=== PATIENT | male | born 1940 | race Caucasian/White ===

== ENCOUNTER 2017-07-26 09:18 | Emergency (ER) | payer OTHER ==
[2017-07-26] MEDS ORDERED: ASPIRIN 81 MG CHEW TAB ONE ×2 (09:28→09:29)
[2017-07-26] MEDS ORDERED: ASPIRIN 81 MG CHEW TAB PO ONE (09:29)
[2017-07-26] MEDS: NITROGLYCERIN 0.4 MG TAB.SUBL SL ONE ×2 (09:32→09:48)
[2017-07-26 09:38] LABS: BASOPHILS % 0.6 (0.0-1.5); EOSINOPHILS % 0.5 % (0.0-6.8); MEAN CORPUSCULAR HEMOGLOBIN 29.6 pg (28.0-34.0); MONOCYTES % 5.8 % (0.0-11.0); NEUTROPHILS # 4.8 # k/uL (1.4-7.7)
[2017-07-26] MEDS ORDERED: METOPROLOL TARTRATE 5 MG/5 ML VIAL IVP ONE ×3 (09:41→09:53)
[2017-07-26] MEDS ORDERED: HEPARIN SODIUM 5000 UNIT/1 ML ONE (09:49)
[2017-07-26 09:52] LABS: eGFR (African) > 60; eGFR (Non-African) 57
[2017-07-26] MEDS ORDERED: HEPARIN SODIUM 5000 UNIT/1 ML IVP ONE (09:52)
[2017-07-26] MEDS ORDERED: 0.9 % SODIUM CHLORIDE 1,000 ML IV ONE (09:53)
[2017-07-26 10:06] VITALS: BP 104/68
--- NOTE | 2017-07-26 10:12 | ED Physician Documentation ---
Chest Pain - HISTORIAN Historian: patient - HPI Stated Complaint: chest pain Chief Complaint: Chest Pain Onset: hours Timing: still present Duration: persistent, worse Last known Well Date: 07/25/17 Last Known Well Time: 20:00 Context: rest Severity: moderate Quality: pressure, tightness Chest Pain Radiation: no radiation Chest Pain Signs/Symptoms: denies: nausea, vomiting, diaphoresis, dyspnea, tachypnea, tachycardia Worsened By: nothing Relieved By: nothing Further Comments: yes (76 year old male patient brought in by a friend with complaints of chest pain. Patient reports chest pain started last night, states he had chest pain during the night. 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 PCP is [facility].) - ROS CONST: none MS/LYMPH: none GI/: none EYES/ENT: none SKIN/ENDO: none NEURO/PSYCH: none - PAST HX IA risk factors: no pertinent history (patient denies) Lung disease: COPD Allergies/Adverse Reactions: Allergies Allergy/AdvReac Type Severity Reaction Status Date / Time No Known Allergies Allergy Verified 07/26/17 09:38 Home Medications: Ambulatory Orders Medication Instructions Recorded Albuterol Sulfate [Albuterol 8.5 gm IH QID #1 [id number].aer.[email or web address] 09/29/12 Sulfate Hfa] Albuterol Sulfate [Proair HFA] 1 inh IH 07/26/17 - SOCIAL HX Smoking History: non-smoker - FAMILY HX Family HX: denies: none - VITAL SIGNS Vital Signs: Vital Signs Temp Pulse Resp BP Pulse Ox 116 H 22 104/68 95 07/26/17 10:02 07/26/17 10:02 07/26/17 10:02 07/26/17 10:02 - REVIEWED ASSESSMENTS Nursing Assessment Reviewed: Yes Vitals Reviewed: Yes Progress - Progress Progress: 0921 EKG shows anterior-lateral STEMI, [id number], artifact - patient has difficult time rating CP. At present rates pain 6/10, Asa 81mg x 4 tabs given. SL nitro given. Reviewed EKG results with patient, explained he needed to go to regulatory scientist immediately for cardiac cath. Patient prefers [facility]. Last PO intake - dinner 07/25/[address] Elsa CASTILLO at [facility]; no beds available, permission granted to send patient to another facility. Updated patient, prefer [facility]. No air transport available due to low ceiling- Staff for [facility] checked 0950 Call to [facility] - Patient accepted by Dr Salgado, will go directly to boot and shoe laborer. Orders for Heparin bolus 5000U IV. Will send additional lab as results come. EMS at bedside - Patient has had 2 nitro .4mg tabs SL, 10mg of lopressor IV for HR 105-110, NS infusing, heparin bolus given prior to discharge. VS stable at discharge. Patient requested we call his daughters. 1000 Call to patient's daughters Chantal and Jolly to update on transfer. Spoke with Chantal. 1023 Arrival to boot and shoe laborer - per EMS - EKG/XRAY/CT EKG: rhythm (0921 ST, STEMI- anterior-lateral, rate 129; artifact) XRAY: chest - Additional EKG/XRAY/Consults EKG #2: rhythm (0933 ST, STEMI - anterior-lateral, rate 127; artifact; multiple attempts to decrease artifact) ED Results Lab/Radiology - Lab Results Lab Results: Lab Results 07/26/17 07/26/17 07/26/17 09:30 09:30 09:30 WBC 6.40 K/ul K/ul (4.00-12.00) RBC 5.62 M/ul H M/ul (3.90-5.20) Hgb 16.7 g/dL g/dL (12.0-18.0) Hct 53.4 % H % (37.0-53.0) MCV 95.0 fl fl (80.0-100.0) MCH 29.6 pg pg (28.0-34.0) MCHC 31.2 g/dL g/dL (30.0-36.0) RDW 13.1 % % (11.3-14.3) Plt Count 247 K/mm3 K/mm3 (130-400) Neut % (Auto) 74.9 % % (39.0-79.0) Lymph % (Auto) 15.3 % L % (16.0-50.0) [place] % (Auto) 5.8 % % (0.0-11.0) Eos % (Auto) 0.5 % % (0.0-6.8) Baso % (Auto) 0.6 (0.0-1.5) Neut # (Auto) 4.8 # k/uL # k/uL (1.4-7.7) Lymph # (Auto) 1.0 # k/uL # k/uL (0.6-4.0) [place] # (Auto) 0.4 # k/uL # k/uL (0.0-0.9) Eos # (Auto) 0.0 # k/uL # k/uL (0.0-0.6) Baso # (Auto) 0.0 # k/uL # k/uL (0.0-0.5) Reactive Lymphs % 2.8 % % (0.0-5.0) Reactive Lymphs # 0.2 # k/uL # k/uL (0.0-0.8) D-Dimer Pending Sodium 145 mmol/L mmol/L (136-145) Potassium 4.6 mmol/L mmol/L (3.5-5.1) Chloride 103 mmol/L mmol/L (98-107) Carbon Dioxide 30 mmol/L mmol/L (22-30) BUN 18 mg/dL mg/dL (9-20) Creatinine 1.30 mg/dL H mg/dL (0.66-1.25) Estimated Creat Clear 47 Est GFR ( Amer) > 60 (60 - ) Est GFR (Non-Af Amer) 57 L (60 - ) Glucose 150 mg/dL H mg/dL (74-106) Calcium 9.8 mg/dL mg/dL (8.4-10.2) Total Bilirubin 1.1 mg/dL mg/dL (0.2-1.3) AST 55 U/L H U/L (15-46) ALT 37 U/L U/L (13-69) Alkaline Phosphatase 83 U/L U/L (38-126) CK-MB (CK-2) Pending Troponin I 2.23 ng/mL H ng/mL (0.03-0.06) NT-Pro-B Natriuret Pep Pending Total Protein 8.2 g/dL g/dL (6.3-8.2) Albumin 4.3 g/dL g/dL (3.5-5.0) - Radiology Radiology Impressions: Examination: Portable chest History: PCXR, CHEST PAIN, COUGH, HYPOXIA SINCE YESTERDAY (Hx) Comparison exam: None available. Findings: Single view of the chest demonstrates a normal cardiac and mediastinal silhouette. Few vascular calcifications involving the aortic arch. Chronic appearing interstitial changes. Focal area parenchymal fullness involving the right upper lung and left mid lung. Remaining lung lobato without focal infiltrate. No blunting of the costophrenic margins. Scarring at the left costophrenic margin. Osseous structures are appropriate for age. Impression: Right upper and left midlung field densities - while these could represent focal infectious/inflammatory processes, an underlying parenchymal density/lesion cannot be excluded. If these densities persist on subsequent follow up x-ray after appropriate interval therapy, CT chest would be warranted to further evaluate. Electronically signed on Jul 26, 2017 9:50:13 AM AUDIO VISUAL COLLECTIONS COORDINATOR by: Evangelista Licona - Orders Orders: ED Orders Category Date Time Status CHEST 1VIEW [RAD] Stat Exams 07/26/17 09:36 Ordered CBC/PLATELET/DIFF Stat Lab 07/26/17 09:30 Completed CKMB Stat Lab 07/26/17 09:30 Results CMP Stat Lab 07/26/17 09:30 Completed TROPONIN I (cTnI) Stat Lab 07/26/17 09:30 Results 0.9 % Sodium Chloride [Normal Saline] 1,000 ml Med 07/26/17 09:53 Active IV Q1H Aspirin Med 07/26/17 09:29 Discontinued 162 mg .ROUTE .STK-MED ONE Aspirin Med 07/26/17 09:28 Discontinued 324 mg .ROUTE .STK-MED ONE Aspirin Med 07/26/17 09:29 Discontinued 324 mg PO NOW ONE Heparin Sodium [Heparin] Med 07/26/17 09:49 Discontinued 5,000 unit .ROUTE .STK-MED ONE Heparin Sodium [Heparin] Med 07/26/17 09:52 Discontinued 5,000 unit IVP NOW ONE Metoprolol Tartrate [Toprol] Med 07/26/17 09:41 Discontinued 5 mg IVP .STK-MED ONE Metoprolol Tartrate [Toprol] Med 07/26/17 09:43 Discontinued 5 mg IVP NOW ONE Metoprolol Tartrate [Toprol] Med 07/26/17 09:53 Discontinued 5 mg IVP NOW ONE Nitroglycerin [Nitroquick] Med 07/26/17 09:31 Discontinued 0.4 mg SL NOW ONE Oxygen NOW Oxygen 07/26/17 09:20 Ordered Chest Pain Physical Exam - EXAM General Appearance: mild distress EENT: eye inspection normal, AK[place] Respiratory: no resp. distress, chest non-tender, nml breath sounds CVS: no murmur, no gallop, no friction rub, pulses full, pulses equal, tachycardia Abdomen: soft, no organomegaly, normal bowel sounds, no abdominal bruit, no distension Skin: normal color, warm/dry, NR, INT, DR Extremities: non-tender, normal range of motion, no evidence of injury, no edema , J, SPECIAL EDUCATION COORDINATOR Neuro: oriented X3, CN's nml as tested, motor nml, sensation nml, mood/affect nml Discharge Clincal Impression: STEMI (ST elevation myocardial infarction) Qualifiers: Involved coronary artery: other anterior wall coronary artery Qualified Code(s) : I21.09 - ST elevation (STEMI) myocardial infarction involving other coronary artery of anterior wall Referrals: Primary Doctor,No [Primary Care Provider] - 2 Days Condition: Critical Disposition: 02 XFER SHT-TRM HOSP Decision to Admit: NO Decision Time: 10:00
--- NOTE | 2017-07-26 11:57 | Diagnostic Imaging Report ---
KATHY CARRASQUILLO (SALESPERSON AUTOMOBILES) - ER [facility] [address] [address] Report Submission Date: Jul 26, 2017 9:50:13 AM FISH LIVER SORTER Patient Study Name: RAYO CHINCHILLA Date: Jul 26, 2017 9:37:12 AM FISH LIVER SORTER Modality Type: DX Gender: M Description: CHEST : 44 Institution: [facility] Physician: KATHY CARRASQUILLO (KASSI) - ER Examination: Portable chest History: PCXR, CHEST PAIN, COUGH, HYPOXIA SINCE YESTERDAY (Hx) Comparison exam: None available. Findings: Single view of the chest demonstrates a normal cardiac and mediastinal silhouette. Few vascular calcifications involving the aortic arch. Chronic appearing interstitial changes. Focal area parenchymal fullness involving the right upper lung and left mid lung. Remaining lung lobato without focal infiltrate. No blunting of the costophrenic margins. Scarring at the left costophrenic margin. Osseous structures are appropriate for age. Impression: Right upper and left midlung field densities - while these could represent focal infectious/inflammatory processes, an underlying parenchymal density/lesion cannot be excluded. If these densities persist on subsequent follow up x-ray after appropriate interval therapy, CT chest would be warranted to further evaluate. Electronically signed on Jul 26, 2017 9:50:13 AM FISH LIVER SORTER by: Evangelista LOPEZ
== END 2017-07-26 09:50 | disposition short-term general hospital (02) ==
LOC: ED 09:18
DX: I21.09 ST elevation (STEMI) myocardial infarction involving other coronary artery of anterior wall (principal); J44.1 Chronic obstructive pulmonary disease with (acute) exacerbation
CPT/HCPCS: 71045; 80053; 82553; 83880; 84484; 85025; 93005; J1644; J3490; J7030; 96365; 96375; 96376; 99284; S1016

== ENCOUNTER 2018-01-16 08:11 | Inpatient (IN) | payer MEDICARE, OTHER ==
--- NOTE | 2018-01-16 08:22 | ED Physician Documentation ---
Fall - HISTORIAN Historian: patient - HPI Stated Complaint: fall low back pain Chief Complaint: Fall Onset: just prior to arrival Where: home Context: tripped (over oxygen tubing ) r: mild Associated Symptoms:: no loss of consciousness Location of Pain/Injury: lower back Injury to Right Extremity: none Injury to Left Extremity: none Further Comments: yes (He states he fell over the oxygen tubing at home. He states he has low back pain. He denies any loss of control of bowel or bladder . He states the pain is "pain" Denies chronic pain. He states "I am fine" . He is a hospice pt for chronic heart failure) - ROS CONST: no problems NEURO: denies: anxiety, depression MS/SKIN/LYMPH: back pain (low back pain ). denies: weakness, neck pain EYES/ENT: none CVS/RESP: shortness of breath GI/: denies: nausea, vomiting - PAST HX Past History: COPD, other (heart failure ) Allergies/Adverse Reactions: Allergies Allergy/AdvReac Type Severity Reaction Status Date / Time No Known Allergies Allergy Verified 01/16/18 09:49 Home Medications: Ambulatory Orders Medication Instructions Recorded Albuterol Sulfate 2 puff IH Q4 PRN 01/16/18 Amiodarone HCl [Pacerone] 400 mg PO D 01/16/18 Aspirin [Aspir-Low] 81 mg PO D 01/16/18 Atorvastatin Calcium 40 mg PO D 01/16/18 Atorvastatin Calcium 40 mg PO D 01/16/18 Budesonide [Pulmicort Flexhaler] 2 puff IH BID 01/16/18 Clopidogrel Bisulfate [Clopidogrel] 75 mg PO D 01/16/18 Digoxin [Lanoxin] 62.5 mcg PO D 01/16/18 Docusate Sodium [Colace] 100 mg PO PRN PRN 01/16/18 Furosemide [Lasix] 80 mg PO BID 01/16/18 Hyoscyamine Sulfate [Levsin] 0.125 mg PO Q4 PRN 01/16/18 Ipratropium [place] [Atrovent] 1 unit NEB Q6 01/16/18 LORazepam [Ativan] 0.5 mg PO Q4 PRN 01/16/18 Metoprolol Succinate 25 mg PO D 01/16/18 Midodrine HCl [Proamatine] 5 mg PO TID 08/16/18 Morphine Sulfate PO Q4 PRN 01/16/18 Ondansetron HCl Rapdis [Zofran ODT] 4 mg PO Q4 PRN 01/16/18 - SOCIAL HX Smoking History: cigarettes Alcohol Use: none Drug Use: none - FAMILY HX Family History: none - VITAL SIGNS Vital Signs: Vital Signs Temp Pulse Resp BP Pulse Ox 104/68 07/26/17 10:02 - REVIEWED ASSESSMENTS Nursing Assessment Reviewed: No Vitals Reviewed: No Progress - Progress Progress: 0950: he states his back pain is "just pain" when discussing give a number he said "OH HELL FINE 11/10" and he states he has never taken the morphine as ordered at home. He is a hospice pt and he states his hospice nurse is on her way. He denies any hip pain. States since the fall the back pain is not allowing him to feel like he can stand although he denies any loss of feeling DG 1010: Discussed with hospice nurse. She states they would not do aggressive treatment so no option to admit DG 1028: He is improving on pain. Hospice nurse here - she did call and discuss the case with the fashion model provider. He is going to encourage the respite care. This would encourage possibly working with the protective services social worker they have and working on direct admit to [facility]. She alone will work on this plan DG 1050: Hospice admin would like pt admitted with their responsibility. Dr Fraser is agreeable to admit for pain control and therapy DG ED Results Lab/Radiology - Radiology Radiology Impressions: Examination: Portable chest History: Evaluate lungs. PCXR, SOA, WEAKNESS (Hx) Comparison exam: None available. Findings: Single view of the chest demonstrates a prominent cardiac and mediastinal silhouette. Moderate blunting of the right lung base. Minimal blunting of the left costophrenic margin. Interstitial prominence. Consolidative process involving the right midlung. Left-sided cardiac pacemaker. Articular degenerative changes. Impression: Moderate size right effusion. Diffuse parenchymal haziness with focal right midlung consolidation. Electronically signed on Jan 16, 2018 9:29:44 AM CDT by: Evangelista Licona Examination: Plain film lumbar spine History: L-SPINE, LOW BACK PAIN AFTER FALL TODAY. PT STATES HX OF FALL FROM 10 FEET MANY YEARS AGO WITH INJURY TO BACK (Hx) Findings: 3 views of the lumbar spine demonstrates diffuse osteopenia. Endplate narrowing involving L1 through L5. Facet degenerative changes. Atherosclerotic disease involving the abdominal aorta. Impression: Osteopenia and multiple compression deformities - chronicity indeterminate without older exams. Consider obtaining MRI lumbar spine to evaluate marrow edema pattern. Electronically signed on Jan 16, 2018 9:32:30 AM CDT by: Evangelista King Physical Exam - Physical Exam General Appearance: alert, mild distress Head: non-tender, no swelling Neck: non-tender, painless ROM Eye: AKBAR ENT: nml external inspection Resp/CVS: chest non-tender, heart sounds nml, decreased breath sounds, wheezes Abdomen: soft, normal bowel sounds Neuro: oriented x3, CN's nml as tested, sensation nml, mood/affect nml Skin: color nml, no rash Back: normal inspection Extremities: atraumatic, pelvis stable, hips non-tender, no pedal edema, nml ROM Joint: joints nml, nml ROM - [place] Coma Score Eyes Open: Spontaneous Speech: Oriented Motor: Obeys Commands Discharge Clincal Impression: Inadequate pain control Fall Qualifiers: Encounter type: initial encounter Qualified Code(s): W19.XXXA - Unspecified fall, initial encounter Comments: 1. Admit agreeable by Dr Bria REBOLLEDO Disposition: ADMITTED INPATIENT Decision to Admit: [id number] Date of Decison to Admit: 01/16/18 Decision Time: 10:56
[2018-01-16] MEDS ORDERED: BUDESONIDE 0.5MG/2ML AMPUL.NEB NEB ONE (08:32)
[2018-01-16] MEDS: BUDESONIDE 0.5MG/2ML AMPUL.NEB NEB SCH ×2 (08:40→13:14)
[2018-01-16] MEDS ORDERED: PHARMACY KEY 1 EACH EACH MC ONE (09:01)
[2018-01-16 09:26] LABS: BASOPHILS % 0.6 (0.0-1.5); EOSINOPHILS % 0.5 % (0.0-6.8); MEAN CORPUSCULAR HEMOGLOBIN 24.6 pg (28.0-34.0); MEAN CORPUSCULAR VOLUME 83.9 fl (80.0-100.0); MONOCYTES % 6.4 % (0.0-11.0); NEUTROPHILS # 8.8 # k/uL (1.4-7.7)
[2018-01-16] MEDS ORDERED: MORPHINE SULFATE 2 MG/ML PREFILLED SYR IVP ONE (09:49)
[2018-01-16] MEDS ORDERED: DOCUSATE SODIUM 100 MG CAPSULE PO PRN (11:15)
[2018-01-16] MEDS ORDERED: LORazepam 0.5 MG TABLET PO PRN (11:15)
[2018-01-16] MEDS ORDERED: 0.9 % SODIUM CHLORIDE 1,000 ML IV SCH (11:30)
[2018-01-16 13:57] VITALS: BMI 16.6
[2018-01-16] MEDS: MORPHINE SULFATE 2 MG/ML PREFILLED SYR IVP PRN ×2 (16:15→22:32)
[2018-01-16 16:57] LABS: APPEARANCE,URINE CLEAR (CLEAR); COLOR,URINE YELLOW (YELLOW); OCCULT BLOOD,URINE TRACE-LYSED (NEGATIVE)
--- NOTE | 2018-01-16 18:10 | History and Physical Report ---
History of Present Illnes - History of Present Illness Reason for Visit: fall with back pain. History of Present Illness: 77yo white male who fell this AM. Tripped over oxygen hose. Fell backwards and hit his back. Has pain in the mid thoracic faviola area. Pain is worse with moving around. No numbness or weakness noted. Has been hallucinating some since he has been given some pain medication. Patient is currently living by himself. Recently was admitted to [facility] for a acute CT. Lives in mobile home. Usually does not need any assistance. - Past Medical History Cardiac: CAD Pulmonary: COPD - Past Surgical History Past Surgical History: Cataract Removal, Other (6 cardiac stents, , pacemaker defibulttor, partial amputation right distal indes finger.) - Past Family History Mother Family History: Cancer (exophageal), (42yo) Father Family History: (85yo, unknown) Brother 1 Family History: CAD. 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 negative: Fever, Chills, Sweats Eyes: negative: pain, Deferred ENT: Other (endentuous). negative: Ear Pain, Nose Pain, Nose Discharge, Nose Congestion, Mouth Swelling Respiratory: Shortness of Breath (chronic), SOB with Excertion. negative: Cough, Dry, Hemoptysis, Pleuritic Pain, Sputum, Wheezing Cardiovascular: Light Headedness. negative: Chest Pain, Palpitations, Orthopnea, Edema Gastrointestinal: negative: Nausea, Vomiting, Abdominal Pain, Diarrhea, Constipation, Melena, Hematochezia Genitourinary: Other (some hesitency). negative: Dysuria, Frequency, Incontinence, Hematuria Musculoskeletal: Back Pain (mid to lower thoracic area). negative: Neck Pain, Shoulder Pain, Arm Pain, Foot Pain Skin: negative: Rash, Lesions Neurological: Weakness (generalized), Other (some hallucination post morphine). negative: Numbness, Incoordination, Change in Speech, Confusion, Seizures - Medications/Allergies Allergies/Adverse Reactions: Allergies Allergy/AdvReac Type Severity Reaction Status Date / Time No Known Allergies Allergy Verified 01/16/18 09:49 Home Medications: Home Medications Albuterol Sulfate 2 puff IH Q4 PRN 01/16/18 Amiodarone HCl [Pacerone] 400 mg PO D 01/16/18 Aspirin [Aspir-Low] 81 mg PO D 01/16/18 Atorvastatin Calcium 40 mg PO D 01/16/18 Atorvastatin Calcium 40 mg PO D 01/16/18 Budesonide [Pulmicort Flexhaler] 2 puff IH BID 01/16/18 Clopidogrel Bisulfate [Clopidogrel] 75 mg PO D 01/16/18 Digoxin [Lanoxin] 62.5 mcg PO D 01/16/18 Docusate Sodium [Colace] 100 mg PO PRN PRN 01/16/18 Furosemide [Lasix] 80 mg PO BID 01/16/18 Hyoscyamine Sulfate [Levsin] 0.125 mg PO Q4 PRN 01/16/18 Ipratropium [place] [Atrovent] 1 unit NEB Q6 01/16/18 LORazepam [Ativan] 0.5 mg PO Q4 PRN 01/16/18 Metoprolol Succinate 25 mg PO D 01/16/18 Midodrine HCl [Proamatine] 5 mg PO TID 01/16/18 Morphine Sulfate PO Q4 PRN 01/16/18 Ondansetron HCl Rapdis [Zofran ODT] 4 mg PO Q4 PRN 01/16/18 Current Inpatient Medications: Current Inpatient Medications Amiodarone HCl (Pacerone) 400 mg PO DAILY [facility] Atorvastatin Calcium (Lipitor) 40 mg PO HS [facility] Clopidogrel Bisulfate (Plavix) 75 mg PO D [facility] Digoxin (Lanoxin) 62.5 mcg PO [id number] [facility] Docusate Sodium (Colace) 100 mg PO PRN PRN PRN Reason: Constipation Lorazepam (Ativan) 0.5 mg PO Q4 PRN PRN Reason: Anxiety Metoprolol Succinate (Toprol Xl) 25 mg PO DAILY [facility] Miscellaneous (Budesonide [Pulmicort Flexhaler]) 2 puff IH BID [facility] Morphine Sulfate (Depodur) 2 mg IVP Q4 PRN PRN Reason: Severe Pain Last Admin: 01/16/18 16:15 Dose: 2 mg Exam - Exam Vital Signs: Vital Signs (72 hours) 01/16/18 01/16/18 01/16/18 08:11 11:15 12:28 Temperature 100.1 F H 98.7 F 97.5 F L Pulse Rate [ 87 72 70 Left Pulse ox] Respiratory 24 20 24 Rate Blood Pressure 98/41 105/51 97/44 [Right Arm] O2 Sat by Pulse 87 L 98 100 Oximetry 01/16/18 14:00 Temperature 97.4 F L Pulse Rate [ 68 Left Pulse ox] Respiratory 22 Rate Blood Pressure 94/48 [Right Arm] O2 Sat by Pulse 99 Oximetry General: Alert, Oriented to Person, Oriented to Place, Cooperative, Mild distress. No: Oriented to Time (confused some about month) HEENT: PERRLA, EOMI Neck: Stridor, Normal Range of Motion. No: Lymphadenopathy Carotids: WNL Thyroid: WNL Lungs: Normal air movement, Speaks full Sentences, Rales (few rales in bases). No: Respiratory Distress, Stridor Cardiovascular: Regular rate, Normal S1, Normal S2, No murmurs. No: Murmur Abdomen: Normal bowel sounds, Soft, No tenderness, No hepatospenomegaly, No masses Integumentary: Normal, [place], Warm, Dry, Other (defib/pacemaker left ant chest wall) Extremities: No clubbing, No cyanosis, No edema Neurological: Normal speech. No: Normal gait (limited by pain) Psych/Mental Status: Mental status NL, Mood NL, Appropriate Affect. No: Intact Judgment (confused some) - Laboratory Results Laboratory Results: Laboratory Results 01/16/18 01/16/18 01/16/18 08:55 08:55 08:55 WBC 10.80 RBC 3.98 Hgb 9.8 L Hct 33.4 L MCV 83.9 MCH 24.6 L MCHC 29.4 L RDW 16.5 H Plt Count 302 Neut % (Auto) 81.5 H Lymph % (Auto) 7.7 L [place] % (Auto) 6.4 Eos % (Auto) 0.5 Baso % (Auto) 0.6 Neut # (Auto) 8.8 H Lymph # (Auto) 0.8 [place] # (Auto) 0.7 Eos # (Auto) 0.0 Baso # (Auto) 0.1 Reactive Lymphs % 3.3 Reactive Lymphs # 0.4 Sodium 143 Potassium 3.7 Chloride 89 L Carbon Dioxide 40 H BUN 28 H Creatinine 1.80 H Estimated Creat Clear 19 Est GFR ( Amer) 48 L Est GFR (Non-Af Amer) 39 L Glucose 109 H Calcium 7.8 L Total Bilirubin 0.7 AST 228 H ALT 179 H Alkaline Phosphatase 107 NT-Pro-B Natriuret Pep 6540.3 H Total Protein 7.6 Albumin 3.1 L Urine Color Urine Appearance Urine pH Ur Specific [place] Urine Protein Urine Ketones Urine Occult Blood Urine Nitrite Urine Bilirubin Urine Urobilinogen Ur Leukocyte Esterase Urine Glucose 01/16/18 09:40 WBC RBC Hgb Hct MCV MCH MCHC RDW Plt Count Neut % (Auto) Lymph % (Auto) [place] % (Auto) Eos % (Auto) Baso % (Auto) Neut # (Auto) Lymph # (Auto) [place] # (Auto) Eos # (Auto) Baso # (Auto) Reactive Lymphs % Reactive Lymphs # Sodium Potassium Chloride Carbon Dioxide BUN Creatinine Estimated Creat Clear Est GFR ( Amer) Est GFR (Non-Af Amer) Glucose Calcium Total Bilirubin AST ALT Alkaline Phosphatase NT-Pro-B Natriuret Pep Total Protein Albumin Urine Color Yellow Urine Appearance Clear Urine pH 6.0 Ur Specific [place] 1.020 Urine Protein 1+ H Urine Ketones Negative Urine Occult Blood Trace-lysed H Urine Nitrite Negative Urine Bilirubin Negative Urine Urobilinogen 1.0 Ur Leukocyte Esterase Negative Urine Glucose Negative Assessment/Plan - Assessment/Plan (1) Back pain Status: Acute Assessment: may have a compression fracture. Will watch for possible ileus development. Patient advised that we could get a MRI scan in [place] with possible vertebralplasty but he refused to be transferred. (2) CHF (congestive heart failure) Status: Acute Qualifiers: Heart failure type: combined systolic and diastolic Assessment: will continue with present medications. Patient is under hospice care at this time but is a full code. I will try to clarify this. Patient is aware of his diagnoses. (3) End stage chronic obstructive pulmonary disease Status: Acute Assessment: Will continue with supplemental oxygen and current medications VTE Assessment - RISK FACTOR SCORE VTE RISK FACTOR SCORES: AGE OVER 60 YEARS, ANTICIPATED BED CONFINEMENT OR IMMOBILIZATION > 24 HOURS - RISK VTE MODERATE RISK: SCORE OF 2 (RISK PROXIMAL DVT 2-4%) PROPHYAXIS NEEDED
[2018-01-16] MEDS ORDERED: IPRATROPIUM/ALBUTEROL SULFATE 3 ML AMPUL.NEB NEB PRN (18:32)
[2018-01-16] MEDS ORDERED: HYOSCYAMINE SULFATE 0.125 MG TAB.SUBL SL PRN (18:39)
[2018-01-16] MEDS ORDERED: ONDANSETRON HCL 4 MG TAB.RAPDIS PO PRN (18:41)
--- NOTE | 2018-01-16 19:00 | Diagnostic Imaging Report ---
ANAMIKA SANTOS [facility] [address] [facility] [address] [place], [place]. [address] Report Submission Date: Jan 16, 2018 9:29:44 AM CDT Patient Study Name: RAYO CHINCHILLA Date: Jan 16, 2018 8:53:18 AM CDT Modality Type: DX Gender: M Description: CHEST : 44 Institution: [facility] Physician: ANAMIKA SANTOS Examination: Portable chest History: Evaluate lungs. PCXR, SOA, WEAKNESS (Hx) Comparison exam: None available. Findings: Single view of the chest demonstrates a prominent cardiac and mediastinal silhouette. Moderate blunting of the right lung base. Minimal blunting of the left costophrenic margin. Interstitial prominence. Consolidative process involving the right midlung. Left-sided cardiac pacemaker. Articular degenerative changes. Impression: Moderate size right effusion. Diffuse parenchymal haziness with focal right midlung consolidation. Electronically signed on Jan 16, 2018 9:29:44 AM CDT by: Evangelista LOPEZ
--- NOTE | 2018-01-16 19:00 | Diagnostic Imaging Report ---
ANAMIKA SANTOS [facility] [address] [facility] [address] [address] Report Submission Date: Jan 16, 2018 9:32:30 AM CDT Patient Study Name: RAYO CHINCHILLA Date: Jan 16, 2018 9:00:53 AM CDT Modality Type: DX Gender: M Description: SPINE : 44 Institution: [facility] Physician: ANAMIKA SANTOS Examination: Plain film lumbar spine History: L-SPINE, LOW BACK PAIN AFTER FALL TODAY. PT STATES HX OF FALL FROM 10 FEET MANY YEARS AGO WITH INJURY TO BACK (Hx) Findings: 3 views of the lumbar spine demonstrates diffuse osteopenia. Endplate narrowing involving L1 through L5. Facet degenerative changes. Atherosclerotic disease involving the abdominal aorta. Impression: Osteopenia and multiple compression deformities - chronicity indeterminate without older exams. Consider obtaining MRI lumbar spine to evaluate marrow edema pattern. Electronically signed on Jan 16, 2018 9:32:30 AM CDT by: Evangelista LOPEZ
[2018-01-16] MEDS ORDERED: FUROSEMIDE 20 MG TABLET PO ONE (19:51)
[2018-01-16] MEDS: FLUTICASONE/SALMETEROL 250-50 INHALER IH SCH (20:47)
[2018-01-16] MEDS: predniSONE 10 MG TABLET PO SCH (20:47)
[2018-01-16] MEDS: MIDODRINE HCL 5 MG TABLET PO SCH (20:47)
[2018-01-16] MEDS: ATORVASTATIN CALCIUM 80 MG TABLET PO SCH (20:49)
[2018-01-16] MEDS: FUROSEMIDE 40 MG TABLET PO SCH (20:49)
[2018-01-16] MEDS ORDERED: BUDESONIDE IH SCH (21:00)
[2018-01-16] MEDS: MORPHINE SULFATE 4 MG/ML PREFILLED SYR ONE ×2 (22:10→22:35)
[2018-01-17] MEDS: FLUTICASONE/SALMETEROL 250-50 INHALER IH SCH ×2 (08:06→20:38)
--- NOTE | 2018-01-17 08:20 | Inpatient Progress Note ---
Subjective - Required Recertification Statement I anticipate X number of days because-include discharge plan: 2 days - Review of Systems Events since last encounter: Patient states that he is doing some better today. Patient states that as long as he does not move he does not have a lot of pain but it be started to bear weight or loads his spine he will have severe pain in his back. Patient denies any numbness or weakness to the lower extremities. Patient is not had any bowel or bladder incontinence issues. I talked with his daughter about patient's status and code status. She is aware of his poor condition and the fact that if he had to be coded it would be a futile effort. But due to his wishes we will do chemical and artificial respiration. no intubation. Objective - Exam Vitals and I&O: Vital Signs Temp 97.8 F 01/17/18 06:00 Pulse 75 01/17/18 06:00 Resp 22 01/17/18 06:00 BP 91/46 01/17/18 06:00 Pulse Ox 92 01/17/18 06:00 Intake & Output 01/16/18 01/16/18 01/17/18 11:59 23:59 11:59 Intake Total 1400 360 Output Total 300 Balance 1400 60 Weight 38.555 kg 45.359 kg Intake: IV 40 Left Hand 40 Oral 1360 360 Output: Urine 300 Other: Voiding Method Urinal Urinal # Voids 0 General: Alert (patient is confused at times. ), Oriented to Person, Oriented to Place, Oriented to Time, Cooperative Neck: Supple Lungs: Clear to auscultation, Rales (right lung filed) Cardiovascular: Regular rate, Normal S1, Normal S2, No murmurs Abdomen: Normal bowel sounds, Soft, No tenderness, No hepatospenomegaly Extremities: No clubbing, No cyanosis, No edema, Other (patient has tenderness ot palpation over the mid thoracic and lumbar spine. ) Skin: Normal, [place], Warm, Dry Neurological: Normal speech, Strength Equal Bilat, Normal tone Psych/Mental Status: Mental status NL, Mood NL - Results Results: Laboratory Results WBC 10.80 K/ul (4.00-12.00) 01/16/18 08:55 RBC 3.98 M/ul (3.90-5.20) 01/16/18 08:55 Hgb 9.8 g/dL (12.0-18.0) L 01/16/18 08:55 Hct 33.4 % (37.0-53.0) L 01/16/18 08:55 MCV 83.9 fl (80.0-100.0) 01/16/18 08:55 MCH 24.6 pg (28.0-34.0) L 01/16/18 08:55 MCHC 29.4 g/dL (30.0-36.0) L 01/16/18 08:55 RDW 16.5 % (11.3-14.3) H 01/16/18 08:55 Plt Count 302 K/mm3 (130-400) 01/16/18 08:55 Neut % (Auto) 81.5 % (39.0-79.0) H 01/16/18 08:55 Lymph % (Auto) 7.7 % (16.0-50.0) L 01/16/18 08:55 [facility] % (Auto) 6.4 % (0.0-11.0) 01/16/18 08:55 Eos % (Auto) 0.5 % (0.0-6.8) 01/16/18 08:55 Baso % (Auto) 0.6 (0.0-1.5) 01/16/18 08:55 Neut # (Auto) 8.8 # k/uL (1.4-7.7) H 01/16/18 08:55 Lymph # (Auto) 0.8 # k/uL (0.6-4.0) 01/16/18 08:55 [facility] # (Auto) 0.7 # k/uL (0.0-0.9) 01/16/18 08:55 Eos # (Auto) 0.0 # k/uL (0.0-0.6) 01/16/18 08:55 Baso # (Auto) 0.1 # k/uL (0.0-0.5) 01/16/18 08:55 Reactive Lymphs % 3.3 % (0.0-5.0) 01/16/18 08:55 Reactive Lymphs # 0.4 # k/uL (0.0-0.8) 01/16/18 08:55 Sodium 143 mmol/L (136-145) 01/16/18 08:55 Potassium 3.7 mmol/L (3.5-5.1) 01/16/18 08:55 Chloride 89 mmol/L (98-107) L 01/16/18 08:55 Carbon Dioxide 40 mmol/L (22-30) H 01/16/18 08:55 BUN 28 mg/dL (9-20) H 01/16/18 08:55 Creatinine 1.80 mg/dL (0.66-1.25) H 01/16/18 08:55 Estimated Creat Clear 19 01/16/18 08:55 Est GFR ( Amer) 48 (60-) L 01/16/18 08:55 Est GFR (Non-Af Amer) 39 (60-) L 01/16/18 08:55 Glucose 109 mg/dL (74-106) H 01/16/18 08:55 Calcium 7.8 mg/dL (8.4-10.2) L 01/16/18 08:55 Total Bilirubin 0.7 mg/dL (0.2-1.3) 01/16/18 08:55 AST 228 U/L (15-46) H 01/16/18 08:55 ALT 179 U/L (13-69) H 01/16/18 08:55 Alkaline Phosphatase 107 U/L (38-126) 01/16/18 08:55 NT-Pro-B Natriuret Pep 6540.3 pg/mL (15.0-450.0) H 01/16/18 08:55 Total Protein 7.6 g/dL (6.3-8.2) 01/16/18 08:55 Albumin 3.1 g/dL (3.5-5.0) L 01/16/18 08:55 Urine Color Yellow (YELLOW) 01/16/18 09:40 Urine Appearance Clear (CLEAR) 01/16/18 09:40 Urine pH 6.0 (5.0 - 8.0) 01/16/18 09:40 Ur Specific [place] 1.020 (1.010-1.030) 01/16/18 09:40 Urine Protein 1+ mg/dL (NEGATIVE) H 01/16/18 09:40 Urine Ketones Negative mg/dL (NEGATIVE) 01/16/18 09:40 Urine Occult Blood Trace-lysed (NEGATIVE) H 01/16/18 09:40 Urine Nitrite Negative (NEGATIVE) 01/16/18 09:40 Urine Bilirubin Negative (NEGATIVE) 01/16/18 09:40 Urine Urobilinogen 1.0 Eu (0.2-1.0) 01/16/18 09:40 Ur Leukocyte Esterase Negative (NEGATIVE) 01/16/18 09:40 Urine Glucose Negative mg/dL (NEGATIVE) 01/16/18 09:40 Assessment/Plan - Assessment/Plan (1) Back pain Status: Acute Current Visit: Yes Assessment: I suspect patient has a compression fracture. I have talked with him aobut treatment options but he does not want to pursue MRI or vertebral plasty. (2) CHF (congestive heart failure) Status: Acute Current Visit: Yes Qualifiers: Heart failure type: combined systolic and diastolic Assessment: Appears to have end stage CHF. Daughter states that his EF is in the 20%. (3) End stage chronic obstructive pulmonary disease Status: Acute Current Visit: Yes Assessment: Patient continues to drop his SAO2 down at times. Is currently one 6-8 liter per nasal canula. Will continue with home meds.
[2018-01-17] MEDS ORDERED: AMIODARONE HCL 400 MG PO SCH (09:00)
[2018-01-17] MEDS ORDERED: DIGOXIN 62.5 MCG PO SCH (09:00)
[2018-01-17] MEDS ORDERED: Non-Formulary 1 EACH (Atorvastatin Calcium [Atorvastatin Calcium] 40 MG) PO SCH (09:00)
[2018-01-17] MEDS ORDERED: METOPROLOL SUCCINATE 25 MG PO SCH (09:00)
[2018-01-17] MEDS: MORPHINE SULFATE 2 MG/ML PREFILLED SYR IVP PRN (09:50)
[2018-01-17] MEDS: MIDODRINE HCL 5 MG TABLET PO SCH ×2 (09:53→13:50)
[2018-01-17] MEDS: TIOTROPIUM BROMIDE INHALER IH SCH (09:54)
[2018-01-17] MEDS: AMIODARONE HCL 200 MG TABLET PO SCH (09:54)
[2018-01-17] MEDS: CLOPIDOGREL BISULFATE 75 MG TABLET PO SCH (09:55)
[2018-01-17] MEDS: predniSONE 10 MG TABLET PO SCH (09:56)
[2018-01-17] MEDS: FUROSEMIDE 40 MG TABLET PO SCH ×2 (09:57→20:39)
[2018-01-17] MEDS: METOPROLOL SUCCINATE 50 MG TAB.ER.24H PO SCH (09:57)
[2018-01-17] MEDS ORDERED: DIGOXIN 125 MCG TABLET PO SCH (12:00)
[2018-01-17] MEDS ORDERED: HYDROmorphone HCL/PF 1 MG/ML DISP.SYRIN IVP PRN (14:40)
[2018-01-17] MEDS ORDERED: ACETAMINOPHEN 500 MG TABLET PO PRN (14:43)
[2018-01-17] MEDS ORDERED: TAMSULOSIN HCL 0.4 MG CAP.ER.24H PO SCH (18:00)
[2018-01-17] MEDS: ATORVASTATIN CALCIUM 80 MG TABLET PO SCH (20:39)
[2018-01-18] MEDS ORDERED: ENOXAPARIN SODIUM 30 MG/0.3 ML DISP.SYRIN SQ SCH (08:00)
[2018-01-18] MEDS ORDERED: ENOXAPARIN SODIUM 30 MG/0.3 ML DISP.SYRIN SQ ONE (08:01)
[2018-01-18] MEDS: FUROSEMIDE 40 MG TABLET PO SCH (08:10)
[2018-01-18] MEDS: AMIODARONE HCL 200 MG TABLET PO SCH (08:10)
[2018-01-18] MEDS: CLOPIDOGREL BISULFATE 75 MG TABLET PO SCH (08:11)
[2018-01-18] MEDS: METOPROLOL SUCCINATE 50 MG TAB.ER.24H PO SCH (08:11)
[2018-01-18] MEDS: predniSONE 10 MG TABLET PO SCH (08:11)
[2018-01-18] MEDS: TIOTROPIUM BROMIDE INHALER IH SCH (08:22)
[2018-01-18] MEDS: FLUTICASONE/SALMETEROL 250-50 INHALER IH SCH (08:22)
[2018-01-18] MEDS: MIDODRINE HCL 5 MG TABLET PO SCH (09:00)
[2018-01-18 11:03] VITALS: BP 112/54
[2018-01-18] MEDS ORDERED: KETAMINE HCL 200 MG/20 ML VIAL ONE (12:00)
--- NOTE | 2018-01-18 13:45 | History and Physical Report ---
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 Alcohol: None Drugs: None Domestic Violence: Negative - Health Maintenance Health Maintenance: Influenza Vaccine, Pneumococcal Vaccine Resuscitation Status: Resusciation Status Resuscitation Status Full Code Review of Systems - Medications/Allergies Allergies/Adverse Reactions: Allergies Allergy/AdvReac Type Severity Reaction Status Date / Time No Known Allergies Allergy Verified 01/16/18 09:49 Home Medications: Home Medications Albuterol Sulfate 2 puff IH Q4 PRN 01/16/18 Amiodarone HCl [Pacerone] 400 mg PO D 01/16/18 Aspirin [Aspir-Low] 81 mg PO D 01/16/18 Atorvastatin Calcium 40 mg PO D 01/16/18 Atorvastatin Calcium 40 mg PO D 01/16/18 Budesonide [Pulmicort Flexhaler] 2 puff IH BID 01/16/18 Clopidogrel Bisulfate [Clopidogrel] 75 mg PO D 01/16/18 Digoxin [Lanoxin] 62.5 mcg PO D 01/16/18 Docusate Sodium [Colace] 100 mg PO PRN PRN 01/16/18 Furosemide [Lasix] 80 mg PO BID 01/16/18 Hyoscyamine Sulfate [Levsin] 0.125 mg PO Q4 PRN 01/16/18 Ipratropium [place] [Atrovent] 1 unit NEB Q6 01/16/18 LORazepam [Ativan] 0.5 mg PO Q4 PRN 01/16/18 Metoprolol Succinate 25 mg PO D 01/16/18 Midodrine HCl [Proamatine] 5 mg PO TID 01/16/18 Morphine Sulfate PO Q4 PRN 01/16/18 Ondansetron HCl Rapdis [Zofran ODT] 4 mg PO Q4 PRN 01/16/18 Current Inpatient Medications: Current Inpatient Medications Acetaminophen (Tylenol Extra Strength) 500 mg PO Q4H PRN PRN Reason: Fever >101 Albuterol/Ipratropium (Duoneb) 3 ml NEB Q4 PRN PRN Reason: Wheezing Last Admin: 01/17/18 20:56 Dose: 3 ml Amiodarone HCl (Pacerone) 400 mg PO DAILY [facility] Last Admin: 01/18/18 08:10 Dose: 400 mg Atorvastatin Calcium (Lipitor) 40 mg PO HS [facility] Last Admin: 01/17/18 20:39 Dose: 40 mg Clopidogrel Bisulfate (Plavix) 75 mg PO D [facility] Last Admin: 01/18/18 08:11 Dose: 75 mg Digoxin (Lanoxin) 62.5 mcg PO [id number] [facility] Last Admin: 01/17/18 13:50 Dose: 62.5 mcg Docusate Sodium (Colace) 100 mg PO PRN PRN PRN Reason: Constipation Last Admin: 01/17/18 20:39 Dose: 100 mg Enoxaparin Sodium (Lovenox) 30 mg SQ QD [facility] Stop: 01/31/18 08:01 Last Admin: 01/18/18 08:30 Dose: 30 mg Fentanyl (Duragesic) 1 each TD Q72 [facility] Stop: 02/02/18 08:59 Last Admin: 01/16/18 20:51 Dose: 1 each Furosemide (Lasix) 40 mg PO BID [facility] Last Admin: 01/18/18 08:10 Dose: 40 mg Hydromorphone HCl (Dilaudid) 1 mg IVP Q6H PRN PRN Reason: Severe Pain Last Admin: 01/18/18 10:15 Dose: 1 mg Hyoscyamine (Levsin) 0.125 mg SL Q4 PRN PRN Reason: abd bloating Lorazepam (Ativan) 0.5 mg PO Q4 PRN PRN Reason: Anxiety Metoprolol Succinate (Toprol Xl) 25 mg PO DAILY [facility] Last Admin: 01/18/18 08:11 Dose: 25 mg Midodrine (Amatine) 5 mg PO TID [facility] Last Admin: 01/18/18 09:00 Dose: 5 mg Ondansetron HCl (Zofran Odt) 4 mg PO Q6H PRN PRN Reason: Nausea / Vomiting Last Admin: 01/17/18 16:50 Dose: 4 mg Prednisone (Deltasone) 5 mg PO DAILY [facility] Last Admin: 01/18/18 08:11 Dose: 5 mg Fluticasone/Salmeterol (Advair 250-50 Diskus) 1 each IH BID [facility] Last Admin: 01/18/18 08:22 Dose: 1 each Tamsulosin HCl (Flomax) 0.4 mg PO [id number] [facility] Tiotropium [place] (Spiriva) 1 inh IH DAILY [facility] Last Admin: 01/18/18 08:22 Dose: 1 units Exam - Exam Vital Signs: Vital Signs (72 hours) 01/16/18 01/16/18 01/16/18 08:11 11:15 12:28 Temperature 100.1 F H 98.7 F 97.5 F L Pulse Rate [ 87 72 70 Left Pulse ox] Pulse Rate [ Right] Respiratory 24 20 24 Rate Blood Pressure 98/41 105/51 97/44 [Right Arm] O2 Sat by Pulse 87 L 98 100 Oximetry 01/16/18 01/16/18 01/16/18 14:00 18:00 20:00 Temperature 97.4 F L 97.4 F L Pulse Rate [ 68 72 Left Pulse ox] Pulse Rate [ 70 Right] Respiratory 22 22 22 Rate Blood Pressure 94/48 97/47 [Right Arm] O2 Sat by Pulse 99 95 Oximetry 01/16/18 01/17/18 01/17/18 22:00 00:00 01:09 Temperature 97.8 F 97.9 F Pulse Rate [ 72 68 67 Left Pulse ox] Pulse Rate [ Right] Respiratory 22 22 22 Rate Blood Pressure 97/43 97/43 [Right Arm] O2 Sat by Pulse 85 L 89 L Oximetry 01/17/18 01/17/18 01/17/18 04:00 06:00 08:00 Temperature 97.8 F Pulse Rate [ 67 75 78 Left Pulse ox] Pulse Rate [ 70 70 Right] Respiratory 22 22 16 Rate Blood Pressure 91/46 [Right Arm] O2 Sat by Pulse 92 Oximetry 01/17/18 01/17/18 01/17/18 09:45 12:00 13:37 Temperature 97.3 F L 98.2 F Pulse Rate [ 78 78 78 Left Pulse ox] Pulse Rate [ 70 Right] Respiratory 16 18 18 Rate Blood Pressure 101/51 102/49 [Right Arm] O2 Sat by Pulse 90 L 84 L Oximetry 01/17/18 01/17/18 01/17/18 16:00 17:55 20:00 Temperature 97.9 F Pulse Rate [ 78 78 Left Pulse ox] Pulse Rate [ 73 73 73 Right] Respiratory 16 16 16 Rate Blood Pressure 95/47 [Right Arm] O2 Sat by Pulse 94 Oximetry 01/17/18 01/18/18 01/18/18 22:00 00:00 01:50 Temperature 97.0 F L 96.6 F L Pulse Rate [ 79 79 77 Left Pulse ox] Pulse Rate [ Right] Respiratory 22 22 22 Rate Blood Pressure 104/51 91/50 [Right Arm] O2 Sat by Pulse 89 L 91 L Oximetry 01/18/18 01/18/18 01/18/18 04:00 06:00 10:00 Temperature 96.8 F L 98.4 F Pulse Rate [ 77 74 Left Pulse ox] Pulse Rate [ 74 Right] Respiratory 22 20 18 Rate Blood Pressure 108/45 112/54 [Right Arm] O2 Sat by Pulse 94 94 Oximetry - Laboratory Results Laboratory Results: Laboratory Results 01/16/18 01/16/18 01/16/18 08:55 08:55 08:55 WBC 10.80 RBC 3.98 Hgb 9.8 L Hct 33.4 L MCV 83.9 MCH 24.6 L MCHC 29.4 L RDW 16.5 H Plt Count 302 Neut % (Auto) 81.5 H Lymph % (Auto) 7.7 L [place] % (Auto) 6.4 Eos % (Auto) 0.5 Baso % (Auto) 0.6 Neut # (Auto) 8.8 H Lymph # (Auto) 0.8 [place] # (Auto) 0.7 Eos # (Auto) 0.0 Baso # (Auto) 0.1 Reactive Lymphs % 3.3 Reactive Lymphs # 0.4 Sodium 143 Potassium 3.7 Chloride 89 L Carbon Dioxide 40 H BUN 28 H Creatinine 1.80 H Estimated Creat Clear 19 Est GFR ( Amer) 48 L Est GFR (Non-Af Amer) 39 L Glucose 109 H Calcium 7.8 L Total Bilirubin 0.7 AST 228 H ALT 179 H Alkaline Phosphatase 107 NT-Pro-B Natriuret Pep 6540.3 H Total Protein 7.6 Albumin 3.1 L Urine Color Urine Appearance Urine pH Ur Specific [place] Urine Protein Urine Ketones Urine Occult Blood Urine Nitrite Urine Bilirubin Urine Urobilinogen Ur Leukocyte Esterase Urine Glucose 01/16/18 09:40 WBC RBC Hgb Hct MCV MCH MCHC RDW Plt Count Neut % (Auto) Lymph % (Auto) [place] % (Auto) Eos % (Auto) Baso % (Auto) Neut # (Auto) Lymph # (Auto) [place] # (Auto) Eos # (Auto) Baso # (Auto) Reactive Lymphs % Reactive Lymphs # Sodium Potassium Chloride Carbon Dioxide BUN Creatinine Estimated Creat Clear Est GFR ( Amer) Est GFR (Non-Af Amer) Glucose Calcium Total Bilirubin AST ALT Alkaline Phosphatase NT-Pro-B Natriuret Pep Total Protein Albumin Urine Color Yellow Urine Appearance Clear Urine pH 6.0 Ur Specific [place] 1.020 Urine Protein 1+ H Urine Ketones Negative Urine Occult Blood Trace-lysed H Urine Nitrite Negative Urine Bilirubin Negative Urine Urobilinogen 1.0 Ur Leukocyte Esterase Negative Urine Glucose Negative Assessment/Plan - Assessment/Plan (1) Back pain Status: Acute Current Visit: Yes (2) CHF (congestive heart failure) Status: Acute Current Visit: Yes Qualifiers: Heart failure type: combined systolic and diastolic (3) End stage chronic obstructive pulmonary disease Status: Acute Current Visit: Yes
--- NOTE | 2018-01-18 13:50 | Discharge Summary ---
Discharge Summary - Discharge Sumary History of Present Illness: 77yo white male with a history of end stage COPD. Heis usually on oxygen therapy at home of 6 liters. patient has had an PR earlier this year resulting in CHF. he is reported to have an EF in the 20s. He also has a history of CKD. Baseline creatinine and BUN is not known. Patient fell this AM whe he tripped over oxygen hose. Fell backwards and hit his back. Had some immediate pain in the mid thoracic back area. Pain is worse with moving around. No numbness or weakness noted. Has been hallucinating some since he has been given some pain medication. Patient is currently living by himself. Lives in mobile home. Usually does not need any assistance. Patient has been placed on hospice care although per his request he wanted to have a limited code if needed. Patient is not able to move well at this time due to back pain. Admitted to hospital for pain management. Condition at Discharge: (13:25) Home Medications: Ambulatory Orders Medication Instructions Recorded Albuterol Sulfate 2 puff IH Q4 PRN 01/16/18 Amiodarone HCl [Pacerone] 400 mg PO D 01/16/18 Aspirin [Aspir-Low] 81 mg PO D 01/16/18 Atorvastatin Calcium 40 mg PO D 01/16/18 Atorvastatin Calcium 40 mg PO D 01/16/18 Budesonide [Pulmicort Flexhaler] 2 puff IH BID 01/16/18 Clopidogrel Bisulfate [Clopidogrel] 75 mg PO D 01/16/18 Digoxin [Lanoxin] 62.5 mcg PO D 01/16/18 Docusate Sodium [Colace] 100 mg PO PRN PRN 01/16/18 Furosemide [Lasix] 80 mg PO BID 01/16/18 Hyoscyamine Sulfate [Levsin] 0.125 mg PO Q4 PRN 01/16/18 Ipratropium [place] [Atrovent] 1 unit NEB Q6 01/16/18 LORazepam [Ativan] 0.5 mg PO Q4 PRN 01/16/18 Metoprolol Succinate 25 mg PO D 01/16/18 Midodrine HCl [Proamatine] 5 mg PO TID 01/16/18 Morphine Sulfate PO Q4 PRN 01/16/18 Ondansetron HCl Rapdis [Zofran ODT] 4 mg PO Q4 PRN 01/16/18 Consultations this Visit: None Procedures this Visit: Other (Code) Allergies/Adverse Reactions: Allergies Allergy/AdvReac Type Severity Reaction Status Date / Time No Known Allergies Allergy Verified 01/16/18 09:49 Patient Problems: Current Active Problems Problem Status Onset Back pain Acute CHF (congestive heart failure) Acute End stage chronic obstructive pulmonary disease Acute Fall Acute Inadequate pain control Acute Discharge Summary: Patient was given morphine for pain control but patient complained of hallucinations with it. patient then was started on fentanyl patch of 12mcg and Dilaudid for breakthrough pain. patient was felt to have a probable compression fracture to the lumbar vertebrae. Several compression fracture of age indeterminate was noted on x-ray. Patient was counseled about having an MRI scan done and have kyphroplasty done but he did not want to pursue that course of treatment. PT was consulted. On the day that he patient states that he was feeling ok as long as he did not move around much. Patient was encourage to particiapte with PT with the thought that he might qualify for SNF admission. Patient has eaten a small amount of his lunch. When the nurse went back in to remove his tray he was nonrespnsive. No pulse could be found. CPR was started and with assisted ventilation. Please refer to code sheet for specific times and medications that were given. - Final Diagnosis (1) Back pain Problems: probalby due to compression fracture (2) CHF (congestive heart failure) Problems: stable during hospitalization, patient did have a right pleural effusion, not known if chronic. (3) End stage chronic obstructive pulmonary disease Problems: end-stage
[2018-01-18] MEDS ORDERED: ROCURONIUM BROMIDE 10 MG/ML 5ML VIAL ONE (14:39)
[2018-01-18] MEDS ORDERED: SUCCINYLCHOLINE CHLORIDE 20 MG/ML 10ML VIAL ONE (14:39)
[2018-01-18] MEDS ORDERED: 0.9 % SODIUM CHLORIDE 2,000 ML IV ONE (15:04)
--- NOTE | 2018-01-18 15:26 | Diagnostic Imaging Report ---
[facility] [address] [facility].[address] [address] Report Submission Date: Jan 18, 2018 1:17:44 PM CDT Patient Study Name: RAYO CHINCHILLA Date: Jan 18, 2018 12:56:24 PM CDT Modality Type: DX Gender: M Description: CHEST : 44 Institution: [facility] Physician: DANIELLA BOLANOS/MED SURG Chest AP portable single view portable at 1256 hours of January 18, 2018 Clinical history: Dyspnea, the patient is intubated Et tube is at 1 cm above the ezio , single lead ICD , cardiomegaly with atherosclerotic thoracic aorta Right lower lung infiltrate and right pleural effusion with underlying pulmonary venous congestion and COPD. Distended stomach . Impression: Et tube is at 1 cm above the ezio Persistent right lower lung infiltrate and right pleural effusion unchanged since earlier this morning Underlying COPD and pulmonary venous congestion Air distended stomach Electronically signed on Jan 18, 2018 1:17:44 PM CDT by: Eris LOPEZ
[2018-01-18] MEDS ORDERED: EPINEPHrine 0.1 MG/ML DISP.SYRIN IVP ONE (16:29)
[2018-01-19] MEDS ORDERED: fentaNYL 12 MCG 1 EACH PATCH.TD72 TD SCH (09:00)
== END 2018-01-18 13:25 | disposition expired | DRG 544 ==
LOC: ED 08:11 → SOUTH 10:52
PROVIDERS: ADMIT Family Medicine; ATTEND Family Medicine
DX: M48.50XA Collapsed vertebra, not elsewhere classified, site unspecified, initial encounter for fracture (principal); J44.9 Chronic obstructive pulmonary disease, unspecified; I50.9 Heart failure, unspecified; I25.2 Old myocardial infarction; N18.9 Chronic kidney disease, unspecified
CPT/HCPCS: 71045; 72100; 80053; 81002; 83880; 85025; 97161; 97530; A9270; J1170; J1650; J2270; J7030; J7512; J7626; 94640; 96374; 99222; 99232; 99238; S1016